=== PATIENT | male | born 1985 | race Asian ===

== ENCOUNTER 2019-10-10 14:06 | Emergency (ER) | payer MEDICAID ==
[~2019-10-10] VITALS: Ht 167.6 cm; Wt 88.9 kg
[2019-10-10 15:08] VITALS: Ht 167.6 cm; Wt 88.9 kg
[2019-10-10 16:56] VITALS: BP 125/84
== END 2019-10-10 16:56 | disposition home or self-care (01) ==
LOC: ED 14:06
DX: U07.1 COVID-19 (principal); J40 Bronchitis, not specified as acute or chronic; J32.9 Chronic sinusitis, unspecified
CPT/HCPCS: Q0092; U0003-CS

== ENCOUNTER 2019-10-10 23:56 | Emergency (ER) | payer OTHER ==
[~2019-10-10] VITALS: Ht 167.6 cm; Wt 86.2 kg
[2019-10-11 00:01] VITALS: Ht 167.6 cm; Wt 86.2 kg
[2019-10-11 00:50] VITALS: BP 138/93
== END 2019-10-11 00:50 | disposition other institution (70) ==
LOC: ED 23:56
DX: Z02.89 Encounter for other administrative examinations (principal)

== ENCOUNTER 2020-01-12 03:54 | Emergency (ER) | payer BC ==
[~2020-01-12] VITALS: Ht 167.6 cm; Wt 79.4 kg
[2020-01-12 04:03] VITALS: Ht 167.6 cm; Wt 79.4 kg
[2020-01-12 04:36] VITALS: BP 111/66
== END 2020-01-12 04:37 | disposition other institution (70) ==
LOC: ED 03:54
DX: Z76.89 Persons encountering health services in other specified circumstances (principal); Z13.89 Encounter for screening for other disorder
CPT/HCPCS: Q0092

== ENCOUNTER 2020-01-12 03:54 | Emergency (ER) | payer OTHER | END 2020-01-12 04:37 | disposition other institution (70) | LOC: ED 03:54 | DX: Z02.89 Encounter for other administrative examinations (principal) ==